=== PATIENT | male | born 1990 | race African-American/Black ===

== ENCOUNTER 2021-01-02 20:11 | Emergency (ER) | payer SELFPAY ==
[~2021-01-02] VITALS: Ht 182.9 cm; Wt 73.0 kg
[2021-01-02 20:13] VITALS: BP 170/75
== END 2021-01-02 20:46 | disposition left against medical advice (07) ==
LOC: ER 20:11
DX: Z53.21 Procedure and treatment not carried out due to patient leaving prior to being seen by health care provider (principal)